=== PATIENT | male | born 1980 | race Caucasian/White ===

== ENCOUNTER 2019-02-15 21:44 | Emergency (ER) | payer BC ==
[2019-02-15] MEDS ORDERED: PROPARACAINE HCL OPTH 15ML BTL OPTH ONE ×2 (21:49→21:50)
--- NOTE | 2019-02-15 22:03 | Emergency Department Record ---
History of Present Illness - General Chief complaint: Eye Problem Stated complaint: SOMETHING IN RT EYE Time Seen by Provider: 02/15/19 21:49 Source: Patient Mode of Arrival: Ambulatory Limitations: No limitations - History of Present Illness Initial comments: 38 yo male presents to ED for evaluation of foreign body sensation to the right eye that began this morning. Patient reports pain and irritation, denies changer in vision. Patient reports that he attempted to remove the FB that he saw in the mirror at home without success. Patient denies other injury or trauma to the eye. Patient denies health problems at his baseline. MD chief complaint: Eye redness, Foreign body Onset/Timin -: Hour(s) Onset Description: Gradual Location: Right eye Place: Home, Work If Injury: Other Eye Symptoms: Burning, Foreign body sensation, Redness Severity: Moderate Severity scale (1-10): 5 Consistency: Constant, Getting worse Context: Other Associated Symptoms: None Treatments Prior to Arrival: Irrigated eye, Other - Related Data Previous Rx's Medication Instructions Recorded Azithromycin [Zithromax] 250 mg PO DAILY #6 tablet 02/15/19 Allergies Allergy/AdvReac Type Severity Reaction Status Date / Time aspirin Allergy Mild HIVES Verified 09/28/15 18:03 Penicillins Allergy Mild HIVES Verified 09/28/15 18:03 Travel Screening - Travel/Exposure Within Last 30 Days Have you traveled within the last 30 days?: No - Travel Symptoms Symptom Screening: None Review of Systems Constitutional: Denies: Chills, Fever, Malaise, Night sweats Eyes: Reports: Eye pain, Photophobia. Denies: Eye discharge ENT: Denies: Congestion, Ear pain, Epistaxis Respiratory: Denies: Cough, Dyspnea Cardiovascular: Denies: Chest pain, Dyspnea on exertion Endocrine: Denies: Fatigue, Heat or cold intolerance Gastrointestinal: Denies: Abdominal pain, Nausea, Vomiting Genitourinary: Denies: Incontinence, Retention Musculoskeletal: Denies: Arthralgia, Back pain Skin: Denies: Bruising, Change in color Neurological: Denies: Abnormal gait, Confusion, Headache, Seizure Psychiatric: Denies: Anxiety Hematological/Lymphatic: Denies: Anemia, Blood Clots Past Medical History - SOCIAL HISTORY Smoking Status: Current every day smoker - RESPIRATORY Hx Respiratory Disorders: No - CARDIOVASCULAR Hx Cardio Disorders: No - NEURO Hx Neuro Disorders: No - GI Hx GI Disorders: Yes Hx of Polyps: Yes - Hx Genitourinary Disorders: No - ENDOCRINE Hx Endocrine Disorders: No - MUSCULOSKELETAL Hx Musculoskeletal Disorders: Yes - PSYCH Hx Psych Problems: No - HEMATOLOGY/ONCOLOGY Hx Hematology/Oncology Disorders: No Family Medical History Any Significant Family History?: Yes Hx Cancer: Father, Mother, Grandparents Physical Exam - General General Appearance: Alert, Oriented x3, Cooperative, Moderate distress Limitations: No limitations - Head Head exam: Atraumatic, Normocephalic, Normal inspection Head exam detail: negative: Abrasion, Contusion, Schreiber's sign, General tenderness, Hematoma, Laceration - Eye Eye exam: Conjunctival injection, Other (Corneal FB present overlying the right iris at the 3 o'clock position on examination, injected sclera present.). negative: Periorbital swelling, Periorbital tenderness - ENT Ear exam: negative: Auricular hematoma, Auricular trauma Nasal Exam: negative: Active bleeding, Discharge, Dried blood, Foreign body Mouth exam: negative: Drooling, Laceration, Muffled voice, Tongue elevation - Neck Neck exam: Normal inspection. negative: Meningismus, Tenderness - Respiratory Respiratory exam: Normal lung sounds bilaterally. negative: Rales, Respiratory distress, Rhonchi, Stridor - Cardiovascular Cardiovascular Exam: Regular rate, Normal rhythm, Normal heart sounds - GI/Abdominal GI/Abdominal exam: Soft. negative: Rebound, Rigid, Tenderness - Rectal Rectal exam: Deferred - exam: Deferred - Extremities Extremities exam: Normal inspection. negative: Pedal edema, Tenderness - Back Back exam: Denies: CVA tenderness (R), CVA tenderness (L) - Neurological Neurological exam: Alert, Normal gait, Oriented X3 - Psychiatric Psychiatric exam: Normal affect, Normal mood - Skin Skin exam: Normal color. negative: Abrasion Type of lesion: negative: abrasion Course Vital Signs 02/15/19 21:49 Temperature 98.3 F Pulse Rate [ 101 H Pulse Ox Probe] Respiratory 20 Rate Blood Pressure 143/98 [Left Arm] Pulse Ox 97 - Reevaluation(s) Reevaluation #1: 02/15/19 22:16 On flourescein examination, patient has small FB present at the 3 o'clock position of right eye Attempted removal following topical anesthesia with removal of approximately 50 % of the FB Case was discussed with Dr. Monteiro, he will see the patient at 10:00 tomorrow morning for evaluation and removal of the FB. Will initiate treatment with Gentamicin eye drops as directed as well. Patient appears stable for discharge at this time. Disposition Disposition: Discharge Clinical Impression: Corneal foreign body with residual material Qualifiers: Encounter type: initial encounter Laterality: right Qualified Code(s): T15.01XA - Foreign body in cornea, right eye, initial encounter Disposition: Home, Self-Care Condition: (2) Stable Instructions: Eye Foreign Body (ED) Additional Instructions: Return to ED if your symptoms worsen or if you have any concerns. Gentamicin eye drops every 4 hours as directed. Follow-up with Dr. Monteiro at 10:00 tomorrow morning at his office as listed. Prescriptions: Azithromycin [Zithromax] 250 mg PO DAILY #6 tablet Referrals: EFREM MONTEIRO [MEDICAL DOCTOR] - Forms: Patient Portal Access Time of Disposition: 22:02 Quality - Quality Measures Quality Measures: N/A - Blood Pressure Screening Does Patient Have Any of the Following: No Blood Pressure Classification: Hypertensive Reading Systolic Measurement: 143 Diastolic Measurement: 98 Screening for High Blood Pressure: < First Hypertensive BP, F/U Documented > [ [id number]] First Hypertensive Follow-up Interventions: Referral to alternative/primary care provider.
[2019-02-15] MEDS ORDERED: GENTAMICIN SULFATE 0.3% OPTH 5 ML BTL OPTH SCH (22:15)
== END 2019-02-15 22:15 | disposition home or self-care (01) ==
LOC: ER 21:44
DX: T15.01XA Foreign body in cornea, right eye, initial encounter (principal); X58.XXXA Exposure to other specified factors, initial encounter; Y92.009 Unspecified place in unspecified non-institutional (private) residence as the place of occurrence of the external cause; F17.210 Nicotine dependence, cigarettes, uncomplicated
CPT/HCPCS: 65220; 99283